=== PATIENT | female | born 1970 | race Caucasian/White ===

== ENCOUNTER 2018-07-16 14:48 | Emergency (ER) | payer SELFPAY ==
--- NOTE | 2018-07-16 15:29 | RAD ---
2 VIEW CHEST: Date: 07/16/18 HISTORY: Cough. FINDINGS: Lungs are clear. No infiltrate identified. Vascular markings normal. Heart and mediastinum unremarkab le. IMPRESSION: No acute findings. POS: H
== END 2018-07-16 15:45 | disposition home or self-care (01) ==
LOC: ERS 14:48
DX: J20.9 Acute bronchitis, unspecified (principal); Z71.6 Tobacco abuse counseling; F17.210 Nicotine dependence, cigarettes, uncomplicated
CPT/HCPCS: 71046; 99406

== ENCOUNTER 2018-10-15 17:34 | Emergency (ER) | payer SELFPAY | END 2018-10-15 18:37 | disposition home or self-care (01) | LOC: ERS 17:34 | DX: L04.9 Acute lymphadenitis, unspecified (principal); J44.9 Chronic obstructive pulmonary disease, unspecified; F17.210 Nicotine dependence, cigarettes, uncomplicated | CPT/HCPCS: 99283 ==

== ENCOUNTER 2020-03-05 13:48 | Emergency (ER) | payer SELFPAY | END 2020-03-05 15:13 | disposition home or self-care (01) | LOC: ERS 13:48 | DX: K02.9 Dental caries, unspecified (principal); F17.210 Nicotine dependence, cigarettes, uncomplicated | CPT/HCPCS: 99281 ==

== ENCOUNTER 2021-04-21 12:11 | Emergency (ER) | payer SELFPAY | END 2021-04-21 13:05 | disposition home or self-care (01) | LOC: ERS 12:11 | DX: U07.1 COVID-19 (principal); R91.1 Solitary pulmonary nodule; J44.9 Chronic obstructive pulmonary disease, unspecified; F17.210 Nicotine dependence, cigarettes, uncomplicated | CPT/HCPCS: 71045 ==

== ENCOUNTER 2025-03-21 10:59 | Observation (INO) | payer OTHER ==
[2025-03-21] MEDS ORDERED: Ketorolac Tromethamine 30 MG (1 mL) VIAL ONE (13:08)
[2025-03-21] MEDS ORDERED: Ondansetron PF 4 MG/2 ML Vial ONE (13:12)
[2025-03-21 13:40] LABS: #Basophils 0.05 10x3/uL (0.0-0.2); #Eosinophils 0.06 10x3/uL (0.0-0.7); #Monocytes 1.03 10x3/uL (0.11-0.59); #Neutrophils 10.24 10x3/uL (1.40-6.50); %Basophils 0.4 % (0.0-1.0); %Eosinophils 0.4 % (0.0-10.0); %Lymphocytes 18.7 % (21.0-51.0); %Monocytes 7.3 % (0.0-10.0); %Neutrophils 72.4 % (42.0-75.0); Hematocrit 51.1 % (36.0-47.0); Hemoglobin 16.2 g/dL (12.0-16.0); Mean Corpuscular Hemoglobin 27.6 pg (27.0-31.0); Mean Corpuscular Volume 86.9 fL (78.0-98.0); Platelet Count 356 10x3/uL (130-400); Red Blood Cell (RBC) Count 5.88 mill/uL (4.20-5.40); White Blood Cell (WBC) Count 14.13 10x3/uL (4.8-10.8)
[2025-03-21 14:03] LABS: ALT (SGPT) 48 U/L (Less than 34); AST (SGOT) 40 U/L (11-34); Albumin 4.0 g/dL (3.1-4.5); Alkaline Phosphatase 123 U/L (40-110); Anion Gap 15 mmol/L (10-20); BUN (Urea Nitrogen) 15 mg/dL (9.8-20.1); Bilirubin, Total 0.6 mg/dL (0.3-1.2); Calc. Creatinine Clearance 0 mL/min (70-130); Calcium 10.3 mg/dL (7.8-10.44); Carbon Dioxide 26 mmol/L (22-29); Chloride 106 mmol/L (98-107); Globulin 4.1 g/dL (2.4-3.5); Glucose 95 mg/dL (70-105); Potassium 4.0 mmol/L (3.5-5.1); Sodium 143 mmol/L (136-145)
[2025-03-21 14:35] LABS: Bacteria/HPF None Seen HPF (None Seen); CAUTI Indications for Culture Pelvic or flank pain; Glucose, Urine (Dipstick) Normal (Negative); Leukocyte Negative Leu/uL (Negative); Protein, Urine (Dipstick) Negative (Neg-Trace); RBC/HPF None Seen HPF (0-3); Specific Gravity, Urine 1.028 (1.002-1.036); WBC/HPF None Seen HPF (0-3)
[2025-03-21 14:43] LABS: Urine Culture Reflex No No
[2025-03-21] MEDS ORDERED: Acetaminophen 325 MG TAB PO PRN (19:05)
[2025-03-21 21:40] VITALS: BMI 26.9
[2025-03-21] MEDS: HYDROcodone/Acetaminophen 7.5/325 mg Tablet PO PRN (22:36)
[2025-03-22 06:09] LABS: #Basophils 0.08 10x3/uL (0.0-0.2); #Eosinophils 0.17 10x3/uL (0.0-0.7); #Monocytes 0.89 10x3/uL (0.11-0.59); #Neutrophils 9.49 10x3/uL (1.40-6.50); %Basophils 0.6 % (0.0-1.0); %Eosinophils 1.2 % (0.0-10.0); %Lymphocytes 22.5 % (21.0-51.0); %Monocytes 6.4 % (0.0-10.0); %Neutrophils 68.6 % (42.0-75.0); Hematocrit 45.2 % (36.0-47.0); Hemoglobin 14.4 g/dL (12.0-16.0); Mean Corpuscular Hemoglobin 28.2 pg (27.0-31.0); Mean Corpuscular Volume 88.6 fL (78.0-98.0); Platelet Count 339 10x3/uL (130-400); Red Blood Cell (RBC) Count 5.10 mill/uL (4.20-5.40); White Blood Cell (WBC) Count 13.85 10x3/uL (4.8-10.8)
[2025-03-22 06:19] LABS: ALT (SGPT) 58 U/L (Less than 34); AST (SGOT) 40 U/L (11-34); Albumin 3.3 g/dL (3.1-4.5); Alkaline Phosphatase 119 U/L (40-110); Bilirubin, Direct 0.2 mg/dL (0.1-0.3); Bilirubin, Total 0.4 mg/dL (0.3-1.2)
[2025-03-22 06:20] LABS: Anion Gap 17 mmol/L (10-20); BUN (Urea Nitrogen) 22 mg/dL (9.8-20.1); Calc. Creatinine Clearance 96 mL/min (70-130); Calcium 9.2 mg/dL (7.8-10.44); Carbon Dioxide 23 mmol/L (22-29); Chloride 107 mmol/L (98-107); Glucose 116 mg/dL (70-105); Potassium 3.5 mmol/L (3.5-5.1); Sodium 143 mmol/L (136-145)
[2025-03-22] MEDS: HYDROcodone/Acetaminophen 5/325 mg Tablet PO PRN (08:54)
[2025-03-22 16:04] VITALS: BP 128/82; TEMP 98.2
== END 2025-03-22 16:01 | disposition home or self-care (01) ==
LOC: ERS 10:59 → T4-B 19:05
PROVIDERS: ADMIT Student in an Organized Health Care Education/Training Program; ATTEND Internal Medicine
DX: M54.59 Other low back pain (principal); D72.829 Elevated white blood cell count, unspecified; Z88.8 Allergy status to other drugs, medicaments and biological substances
CPT/HCPCS: 36415; 36416; 72157; 72158; 80048; 80053; 80076; 81001; 83605; 84145; 85025; 86141; 87040; 96374; 96375; 96376; G0378; J1885; J2060; J2270; J2405; Q0162